=== PATIENT | male | born 1955 | race Caucasian/White ===

== ENCOUNTER → 2019-03-25 | Outpatient (CLI) | payer BC ==
[2019-03-25 08:53] LABS: HCT 56.1 % (39.0-53.0); HGB 18.5 gm/dL (13.0-17.5); MCH 30.2 pg (25.0-35.0); MCV 91.5 fL (80.0-100.0); Mean Platelet Volume 6.8; Platelet Count 421 k/uL (150-450); RBC 6.14 m/uL (4.30-5.90); RDW 13.1 % (11.5-15.5); WBC 16.1 k/uL (3.8-10.6)
[2019-03-25 10:26] LABS: Appearance,Urine Clear (Clear); Bilirubin,Urine Negative (Negative); Blood,Urine Small (Negative); Color,Urine Yellow; Glucose,Urine (UA) Negative (Negative); Hyaline Casts,Urine 1 /lpf (0-2); Ketones,Urine Negative (Negative); Leukocyte Esterase,Urine Negative (Negative); Mucus,Urine Occasional /hpf; Nitrite,Urine Negative (Negative); PH, Urine 5.5 (5.0-8.0); Protein,Urine 1+ (Negative); RBC,Urine 1 /hpf (0-5); Specific Gravity,Urine 1.032 (1.001-1.035); Urobilinogen,Urine <2.0 mg/dL (<2.0); WBC,Urine 2 /hpf (0-5)
[2019-03-25 17:33] LABS: Albumin/Globulin Ratio 2.38 (1.60-3.17); Anion Gap 9.2 mmol/L (4.00-12.00); Calcium 10.2 mg/dL (8.7-10.3); Carbon Dioxide 21.8 mmol/L (21.6-31.8); Globulin 2.1 g/dL (1.6-3.3); Potassium 4.7 mmol/L (3.5-5.5); Total Bilirubin 0.7 mg/dL (0.3-1.2); Total Protein 7.1 g/dL (6.2-8.2)
== END | disposition home or self-care (01) ==
LOC: LABWHC1 08:21
PROVIDERS: ATTEND Internal Medicine
DX: I10 Essential (primary) hypertension (principal); H53.2 Diplopia
CPT/HCPCS: 36415; 80053; 81001; 85027

== ENCOUNTER → 2019-04-05 | Outpatient (CLI) | payer BC ==
[2019-04-05 07:12] LABS: HCT 54.7 % (39.0-53.0); HGB 17.9 gm/dL (13.0-17.5); MCH 29.9 pg (25.0-35.0); MCHC 32.6 g/dL (31.0-37.0); MCV 91.6 fL (80.0-100.0); Mean Platelet Volume 6.6; Platelet Count 321 k/uL (150-450); RBC 5.97 m/uL (4.30-5.90); RDW 13.3 % (11.5-15.5); WBC 8.3 k/uL (3.8-10.6)
== END | disposition home or self-care (01) ==
LOC: LABWHC1 06:38
PROVIDERS: ATTEND Internal Medicine
DX: D72.829 Elevated white blood cell count, unspecified (principal)
CPT/HCPCS: 36415; 85027

== ENCOUNTER → 2019-04-07 | Outpatient (CLI) | payer BC ==
--- NOTE | 2019-04-07 22:37 | MR ---
EXAMINATION TYPE: MR brain/orbits wo/w con DATE OF EXAM: 04/07/2019 COMPARISON: NONE HISTORY: diplopia TECHNIQUE: Multiplanar, multisequence images of the brain and brainstem as well as orbits are performed without and with IV contrast, utilizing 10 mL intravenous Gadavist . FINDINGS: Diffusion weighted images demonstrate no evidence of a recent infarct or other diffusion ab normality. There is no worrisome extra-axial fluid collection. There is ventricular and sulcal promi nence consistent with mild diffuse age-related cerebral atrophy. There are scattered foci of T2 hyper intensity seen throughout the superficial, deep, and periventricular white matter. Approximately 40 s cattered lesions are identified. Midline structures demonstrate normal morphology. The craniocervical junction appears within normal limits. Post contrast images demonstrate no abnormal enhancement. Dominant left vertebral artery is noted. The dural venous sinuses appear patent. Nasal septum is deviated to right of midline. Mild muc osal thickening involving left maxillary and bilateral ethmoid sinuses is present. Increased fluid si gnal left mastoid air cells is present. The globes are intact bilaterally. Rectus muscles are symmetric and felt within normal limits. Optic nerves show no suspicious enhancement. Suprasellar cistern is maintained. Optic chiasm is not effaced . IMPRESSION: 1. Mild diffuse age-related cerebral atrophy and moderate chronic small vessel ischemic change. 2. Possible left-sided mastoiditis, correlate clinically. 3. Chronic paranasal sinus disease as detailed above. 4.. No orbital masses or suspicious enhancement.
== END ==
LOC: RADMRIMAIN 07:08
PROVIDERS: ATTEND Ophthalmology
DX: G31.1 Senile degeneration of brain, not elsewhere classified (principal); H53.2 Diplopia
CPT/HCPCS: 70543; 70553; A9585

== ENCOUNTER → 2019-04-16 | Outpatient (CLI) | payer BC | END | disposition home or self-care (01) | LOC: LABWHC1 11:08 | PROVIDERS: ATTEND Internal Medicine | DX: Z01.818 Encounter for other preprocedural examination (principal) | CPT/HCPCS: 36415; 93005 ==

== ENCOUNTER → 2019-05-28 | Outpatient (CLI) | payer BC ==
--- NOTE | 2019-05-28 10:53 | CT ---
EXAMINATION TYPE: CT soft tissue neck wo con DATE OF EXAM: 05/28/2019 HISTORY: Myasthenia gravis per order COMPARISON: NONE CT DLP: 782 mGycm. Automated Exposure Control for Dose Reduction was Utilized. TECHNIQUE: CT scan of the neck is performed without contrast. FINDINGS: Lack of IV contrast is noted to lowers sensitivity for mucosal lesions and adenopathy. Airway: No gross abnormality seen. Parotid/submandibular glands: No gross abnormality seen. Carotid/Vascular Structures: Mild calcified plaque left carotid bulb. Osseous Structures: Moderate to severe multilevel anterior and lateral spurring in the cervical thora cic spine. Multilevel uncovertebral and facet degenerative changes bilaterally. Other: Incidental posterior subcutaneous scar level of lower cervical spine just right of midline axi al image 59. No obvious suspicious greater than 1 cm neck adenopathy. No obvious suspicious mass in the anterior s uperior mediastinum. IMPRESSION: No suspicious anterior superior mediastinal mass or neck adenopathy.
== END | disposition home or self-care (01) ==
LOC: RADCTMAIN 08:12
PROVIDERS: ATTEND Ophthalmology
DX: R13.10 Dysphagia, unspecified (principal); Z91.041 Radiographic dye allergy status
CPT/HCPCS: 70490

== ENCOUNTER → 2023-01-28 | Outpatient (CLI) | payer MEDICARE ==
--- NOTE | 2023-01-29 11:58 | MR ---
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 Post contrast imaging was performed after the administration of cc of intravenously. 11.5 cc of Gadavist were injected an post contrast imaging was performed. FINDINGS, ORBITS: Proptosis of the orbital globes bilaterally. The globes appear symmetrical. Bilate rally aphakia Signal intensity of the globes and optic nerves are within normal limits. The intraorb ital fat appears preserved. Both lacrimal glands are unremarkable. The extraocular muscles appear sy mmetric. After administration of contrast, no abnormal enhancement is seen. FINDINGS, BRAIN: No evidence for hydrocephalus. The valdivia-white junctions, ventricular system, and cis terns do appear unremarkable. Diffusion-weighted imaging shows no evidence of restricted diffusion. Scattered foci of high T2 signal intensity are seen within the periventricular white matter. Cavern ous sinus is within normal limits. After administration of contrast, no abnormal enhancement is seen within the brain. IMPRESSION: 1. Proptosis of the globes bilaterally. Findings similar to 2019. 2. No evidence of orbital mass or significant abnormality. 3. No evidence of intracranial mass nor acute/subacute CVA accident. 4. Nonspecific white matter changes are identified likely small vessel ischemic disease.
== END | disposition home or self-care (01) ==
LOC: RADMRIMAIN 11:10
PROVIDERS: ATTEND Ophthalmology
DX: R90.82 White matter disease, unspecified (principal); H05.20 Unspecified exophthalmos; H31.8 Other specified disorders of choroid
CPT/HCPCS: 70543; 70553; A9585

== ENCOUNTER → 2024-05-18 | Outpatient (CLI) | payer MEDICARE ==
--- NOTE | 2024-05-19 06:52 | CA ---
Transthoracic Echo Report Name: Aj Stinson Age: 69 Gender: M : 1955 Exam Date: 05/18/2024 08:42 Exam Location: [facility] Ht (in): 72 Wt (lb): 225 Ordering Physician: Omid Mock MD Attending/Referring Phys: Omid Mock MD Scalder Edelmira Andrew, RD Procedure CPT: Indications: UNCONTROLLED HTN I10 Cardiac Hx: Technical Quality: Fair Contrast 1: Total Dose (mL): Contrast 2: Total Dose (mL): MEASUREMENTS (Male / Female) Normal Values 2D ECHO LV Diastolic Diameter PLAX 5.3 cm 4.2 - 5.9 / 3.9 - 5.3 cm LV Systolic Diameter PLAX 3.5 cm IVS Diastolic Thickness 1.2 cm 0.6 - 1.0 / 0.6 - 0.9 cm LVPW Diastolic Thickness 1.2 cm 0.6 - 1.0 / 0.6 - 0.9 cm LV Relative Wall Thickness 0.4 RV Internal Dim ED PLAX 2.9 cm LA Systolic Diameter LX 4.8 cm 3.0 - 4.0 / 2.7 - 3.8 cm LV Diastolic Volume MOD BP 109.9 cm??? 67 - 155 / 56 - 104 cm??? LV Systolic Volume MOD BP 38.6 cm??? 22 - 58 / 19 - 49 cm??? LV Ejection Fraction MOD BP 64.9 % >= 55 % LV Cardiac Index MOD BP 1672.4 cm???/min???m??? LV Diastolic Volume MOD 4C 125.0 cm??? LV Systolic Volume MOD 4C 42.1 cm??? LV Ejection Fraction MOD 4C 66.3 % LV Cardiac Index MOD 4C 1945.3 cm???/min???m??? LV Diastolic Length 4C 7.2 cm LV Systolic Length 4C 6.1 cm LV Diastolic Volume MOD 2C 89.9 cm??? LV Systolic Volume MOD 2C 32.3 cm??? LV Ejection Fraction MOD 2C 64.1 % LV Cardiac Index MOD 2C 1350.6 cm???/min???m??? LV Diastolic Length 2C 7.8 cm LV Systolic Length 2C 6.7 cm LA Volume 86.6 cm??? 18 - 58 / 22 - 52 cm??? LA Volume Index 37.6 cm???/m??? 16 - 28 cm???/m??? M-MODE Aortic Root Diameter MM 3.1 cm LA Systolic Diameter MM 5.1 cm LA Ao Ratio MM 1.7 AV Cusp Separation MM 1.7 cm DOPPLER AV Peak Velocity 169.1 cm/s AV Peak Gradient 11.4 mmHg MV Area PHT 3.3 cm??? Mitral E Point Velocity 119.5 cm/s Mitral A Point Velocity 92.1 cm/s Mitral E to A Ratio 1.3 MV Deceleration Time 232.9 ms TR Peak Velocity 234.4 cm/s TR Peak Gradient 22.0 mmHg FINDINGS Left Ventricle Left ventricular ejection fraction is estimated at 55-60 %. Mildly increased left ventricular wall thickness. Normal left ventricular wall motion. No obvious regional wall motion abnormalities. Left ventricular cavity size normal. Right Ventricle Normal right ventricular size and function. Right ventricular systolic pressure within normal limits. Right Atrium Mild right atrial dilatation. Left Atrium Moderately increased left atrial diameter. Moderately increased left atrial volume. Mildly increased left atrial area. Mitral Valve Structurally normal mitral valve. Mild mitral regurgitation. No mitral stenosis.mitral annular calcification. Aortic Valve Trileaflet aortic valve. Trace aortic regurgitation. Aortic valve sclerosis. Tricuspid Valve Structurally normal tricuspid valve. Mild tricuspid regurgitation. Pulmonic Valve Structurally normal pulmonic valve. Trace pulmonic regurgitation. Pericardium No pericardial or pleural effusion. Aorta Normal size aortic root and proximal ascending aorta. CONCLUSIONS 1. Normal left ventricle size and systolic function 2. Mild mitral and tricuspid regurgitation with no evidence of pulmonary hypertension Previewed by: Dr. Giuseppe Dias MD (Electronically Signed) Final Date: 19 May 2024 06:50
== END | disposition home or self-care (01) ==
LOC: RADECHMAIN 08:32
PROVIDERS: ATTEND Internal Medicine
DX: I08.1 Rheumatic disorders of both mitral and tricuspid valves (principal); I10 Essential (primary) hypertension
CPT/HCPCS: 93306